=== PATIENT | male | born 1965 | race Caucasian/White ===

== ENCOUNTER 2018-06-13 07:20 | Inpatient (IN) | payer OTHER ==
[2018-06-12 14:20] LABS: BASOPHILS # (AUTO) 0.09 x10^3/uL (0-0.1); BASOPHILS % (AUTO) 1 % (0-1); EOSINOPHILS # (AUTO) 0.12 x10^3/uL (0-0.4); EOSINOPHILS % (AUTO) 2 % (1-7); LYMPHOCYTES # (AUTO) 1.48 x10^3/uL (1-3.4); LYMPHOCYTES % (AUTO) 23 % (22-44); MD NO; MEAN CORPUSCULAR HGB CONC 34.6 g/dL (33.2-36.2); MEAN CORPUSCULAR VOLUME 92.5 fL (81-97); MEAN PLATELET VOLUME 7.6 fL (7.4-10.4); MONOCYTES # (AUTO) 0.63 x10^3/uL (0.2-0.8); MONOCYTES % (AUTO) 10 % (2-9); NEUTROPHILS # (AUTO) 4.08 x10^3/uL (1.8-6.8); NEUTROPHILS % (AUTO) 64 % (42-75); PLATELET COUNT 205 x10^3/uL (130-400); RED BLOOD COUNT 5.57 x10^6/uL (4.38-5.82); RED CELL DISTRIBUTION WIDTH 13.3 % (9.4-14.8)
[2018-06-12 14:29] LABS: INTERNATIONAL NORMALIZED RATIO 1.1 (0.93-1.1); PROTHROMBIN TIME 11.6 Seconds (9.6-11.5)
[2018-06-12 14:32] LABS: CALCIUM 8.8 mg/dL (8.5-10.1); CHLORIDE 107 mmol/L (98-107)
[2018-06-12 14:38] LABS: ALANINE AMINOTRANSFERASE 32 U/L (12-78); ALBUMIN 4.1 g/dL (3.4-5.0); ALKALINE PHOSPHATASE 51 U/L (45-117); ANION GAP 6 mmol/L (5-15); BILIRUBIN,TOTAL 0.8 mg/dL (0.2-1.0); CREATININE 1.02 mg/dL (0.7-1.3); TOTAL PROTEIN 7.8 g/dL (6.4-8.2)
[2018-06-12 15:29] LABS: MICROSCOPIC NOT IND
[2018-06-12 15:36] LABS: CULTURE INDICATED? NO
[~2018-06-13] VITALS: Ht 177.8 cm; Wt 97.7 kg
[~2018-06-13 07:20] MED LIST: AMLO2.5T3 PO; BACITRACIN 50,000 UNIT ONE; BUPIVACAINE/PF-EPI 0.5% 1:200K ONE; MIRT15TA4 PO; PANT40TA3 PO; THROMBIN 5,000 UNIT VIAL TP ONE
[2018-06-13] MEDS ORDERED: LACTATED RINGERS 1,000 ML IV SCH (07:51)
[2018-06-13] MEDS ORDERED: PROPOFOL 50 ML ONE ×3 (08:34→11:08)
[2018-06-13] MEDS ORDERED: FENTANYL PF 250 MCG/5ML ONE (08:35)
[2018-06-13] MEDS ORDERED: MIDAZOLAM 1 MG/ML, 2ML ONE (08:35)
[2018-06-13] MEDS ORDERED: METOPROLOL 1 MG/ML, 5ML IV PRN (10:30)
[2018-06-13] MEDS ORDERED: METOCLOPRAMIDE 5 MG/ML, 2ML IV PRN (10:30)
[2018-06-13] MEDS ORDERED: LORazepam 2 MG/ML, 1ML IVPush PRN (10:30)
[2018-06-13] MEDS ORDERED: hydrALAzine 20 MG/ML, 1ML IV PRN (10:30)
[2018-06-13] MEDS ORDERED: MEPERIDINE/PF 25MG/0.5ML IVPush PRN (10:30)
[2018-06-13] MEDS ORDERED: OXYcodone 5 MG/5 ML ORAL.SOL UDC PO PRN (10:30)
[2018-06-13] MEDS ORDERED: ACETAMINOPHEN 325 MG TABLET PO PRN (10:30)
[2018-06-13] MEDS ORDERED: ACETAMINOPHEN 650 MG/20.3 ML UDC ONE (11:42)
[2018-06-13] MEDS ORDERED: OXYcodone 5 MG/5 ML ORAL.SOL UDC ONE (11:42)
[2018-06-13] MEDS ORDERED: FENTANYL PF 100 MCG/2ML ONE (11:42)
[2018-06-13] MEDS: FENTANYL PF 100 MCG/2ML IV PRN ×2 (11:45→11:50)
[2018-06-13] MEDS ORDERED: MORPHINE SULFATE 4 MG/ML, 1ML ONE (11:54)
[2018-06-13] MEDS: MORPHINE SULFATE 4 MG/ML, 1ML IVPush PRN ×2 (11:55→12:15)
[2018-06-13] MEDS ORDERED: METHOCARBAMOL 1,000 MG in DEXTROSE 5% 100 ML IV ONE ×2 (12:00→13:30)
[2018-06-13] MEDS ORDERED: HYDROmorphone 2 MG/ML, 1ML ONE (12:22)
[2018-06-13] MEDS: HYDROmorphone 2 MG/ML, 1ML IVPush PRN ×2 (12:25→12:30)
[2018-06-13] MEDS ORDERED: PROMETHAZINE 25 MG/ML, 1ML IM PRN (13:30)
[2018-06-13] MEDS ORDERED: MAGNESIUM HYDROXIDE 8%, 30ML UDC PO PRN (13:30)
[2018-06-13] MEDS ORDERED: morphine SULFATE 10 MG/ML, 1ML IV PRN (13:30)
[2018-06-13] MEDS ORDERED: ONDANSETRON 2MG/ML, 2ML IV PRN (13:30)
[2018-06-13] MEDS ORDERED: OXYcodone/APAP 5/325MG TABLET PO PRN (13:30)
[2018-06-13] MEDS ORDERED: BISACODYL 10 MG SUPP PR PRN (13:30)
[2018-06-13] MEDS ORDERED: DIPHENHYDRAMINE 50 MG CAPSULE PO PRN (13:30)
[2018-06-13] MEDS: HYDROcodone/APAP 10/325 MG TABLET PO PRN ×3 (14:02→20:05)
[2018-06-13] MEDS ORDERED: DEXAMETHASONE 4 MG/ML, 1ML ONE (15:00)
[2018-06-13] MEDS ORDERED: CEFAZOLIN 1,000 MG ONE (15:00)
[2018-06-13] MEDS ORDERED: SUCCINYLCHOLINE 20 MG/ML, 10ML ONE (15:00)
[2018-06-13] MEDS ORDERED: ONDANSETRON 2MG/ML, 2ML ONE (15:00)
[2018-06-13] MEDS ORDERED: KETOROLAC 30 MG/1 ML ONE (15:00)
[2018-06-13] MEDS ORDERED: ROCURONIUM 10MG/ML,5ML ONE (15:00)
[2018-06-13] MEDS ORDERED: KETAMINE 10 MG/ML, 20ML ONE (15:02)
[2018-06-13] MEDS: DEXAMETHASONE 4 MG/ML, 1ML IVPush SCH ×2 (17:24→23:16)
[2018-06-13] MEDS: D5%-0.9% NACL+KCL 20MEQ 1,000 ML IV SCH (17:26)
[2018-06-13] MEDS: CEFAZOLIN PMX 1GM/50ML 50 ML IVPB SCH (18:17)
[2018-06-13] MEDS: METHOCARBAMOL 750 MG in DEXTROSE 5% 100 ML IV SCH (20:05)
[2018-06-13 20:24] VITALS: BP 133/62
[2018-06-13] MEDS ORDERED: ZOLPIDEM 5MG TABLET PO PRN (21:00)
[2018-06-13] MEDS ORDERED: MIRTAZAPINE 15 MG TABLET PO SCH (21:00)
[2018-06-13 23:24] VITALS: BP 127/80
[2018-06-14] MEDS: CEFAZOLIN PMX 1GM/50ML 50 ML IVPB SCH (02:21)
[2018-06-14 03:02] VITALS: BP 117/73
[2018-06-14] MEDS: METHOCARBAMOL 750 MG in DEXTROSE 5% 100 ML IV SCH ×2 (04:14→12:40)
[2018-06-14] MEDS ORDERED: DEXAMETHASONE 4 MG/ML, 1ML ONE (05:43)
[2018-06-14] MEDS: DEXAMETHASONE 4 MG/ML, 1ML IVPush SCH (05:54)
[2018-06-14] MEDS: CEPHALEXIN 500 MG CAPSULE PO SCH ×2 (05:55→12:20)
[2018-06-14] MEDS ORDERED: PANTOPROZOLE 40MG TABLET PO SCH (06:00)
[2018-06-14] MEDS: D5%-0.9% NACL+KCL 20MEQ 1,000 ML IV SCH (06:00)
[2018-06-14] MEDS: HYDROcodone/APAP 10/325 MG TABLET PO PRN ×2 (07:17→12:21)
[2018-06-14] MEDS ORDERED: AMLODIPINE 2.5 MG TABLET PO SCH (09:00)
[2018-06-14] MEDS ORDERED: SENNA/DOCUSATE TABLET PO SCH (09:00)
[2018-06-14 09:28] VITALS: BP 132/81
[2018-06-14] MEDS ORDERED: CEPHALEXIN 250 MG CAPSULE ONE (12:16)
[2018-06-14 14:02] VITALS: BP 113/64
[2018-06-14] MEDS ORDERED: DOXY75TA PO (14:34)
[2018-06-14] MEDS ORDERED: CYCL-259 PO (14:35)
[2018-06-14] MEDS ORDERED: HYDR-3622 PO (14:37)
[2018-06-15] MEDS ORDERED: METHOCARBAMOL 750 MG TABLET PO SCH (13:00)
== END 2018-06-14 15:15 | disposition home or self-care (01) | DRG 472 ==
LOC: ORIP 07:20 → 4NOR 13:07
PROVIDERS: ADMIT Neurological Surgery; ATTEND Neurological Surgery
PROC: 0RB30ZZ Excision of Cervical Vertebral Disc, Open Approach (ICD-10-PCS; 2018-06-13)
PROC: 4A11X4G Monitoring of Peripheral Nervous Electrical Activity, Intraoperative, External Approach (ICD-10-PCS; 2018-06-13)
PROC: 0RG20A0 Fusion of 2 or more Cervical Vertebral Joints with Interbody Fusion Device, Anterior Approach, Anterior Column, Open Approach (ICD-10-PCS; principal; 2018-06-13 10:30)
DX: M48.02 Spinal stenosis, cervical region (principal); D68.69 Other thrombophilia; M50.10 Cervical disc disorder with radiculopathy, unspecified cervical region; K21.9 Gastro-esophageal reflux disease without esophagitis; J45.909 Unspecified asthma, uncomplicated; I10 Essential (primary) hypertension; M25.78 Osteophyte, vertebrae; F32.9 Major depressive disorder, single episode, unspecified; Z83.6 Family history of other diseases of the respiratory system; Z84.1 Family history of disorders of kidney and ureter
CPT/HCPCS: 36415; 71046; 72040; 72050; 80053; 81003; 85025; 85610; 85730; 93005; C1713; G0378; J0690; J1100; J1170; J1885; J2250; J2405; J2704; J3010; C1762; J0330; J2800; J3480; J7120